=== PATIENT | female | born 1955 | race Caucasian/White ===

== ENCOUNTER 2022-10-06 01:15 | Emergency (ER) | payer BC, SELFPAY ==
[2022-10-06 01:21] VITALS: BP 145/81; PULSE 77; RESP 16; TEMP 36.2; O2SAT 97
--- NOTE | 2022-10-06 01:33 | ED_ITS ---
HPI - General Adult General Chief complaint: Insect Bite Stated complaint: left hand bee sting Time Seen by Provider: 10/06/22 01:33 History of Present Illness HPI narrative: pt stung by yellow jacket on Friday. Location, left hand, ring finger. Swelling and pain are not improving. Pain rated 4/10. Pt reports taking Tylenol 67-year-old woman presents to the emergency department with complaint hand pain following a yellow jacket sting day and half ago. She has been taking diphenhydramine and acetaminophen. Starting to have pain going up her left arm and some swelling increased into her hand wrist area and is worried that has cellulitis. She notes great deal of tension in her 4th finger indicating the PIP area. No fever. No drainage. Has been icing. No nausea, chest pain, shortness of breath. She is under a good deal of stress as her has had an extended stay at [facility]. Related Data Allergies Allergy/AdvReac Type Severity Reaction Status Date / Time No Known Drug Allergies Allergy Verified 10/06/22 01:24 Review of Systems Status of ROS: Reports: 6 or more systems reviewed and unremarkable except as noted in History and below PFSH REPLACED BY [facility] Social History Smoking Status: Never smoker Non-prescribed substance use: denies use Exam Narrative: Exam Narrative: Pleasant. Mildly anxious. Breathing easily. No wheeze or stridor audible. Examination of left hand in question shows diffuse mild swelling over the dorsum of the hand and more so over the PIP of the left 4th finger. Some blotchy areas of intradermal bleeding at the PIP. There is minimal calor generally. Well- perfused peripherally. I do not see a loss of architecture consistent with cellulitis. Is not particularly tender though to my palpation either over the dorsum of the hand or finger. Flexes and extends this finger without significant difficulty or demonstration of pain. I do not see actual site of envenomation or foreign body. Const: Vital Signs, click to edit/add: Vital Signs - 24 hr 10/06/22 01:21 Temperature 97.1 F L Pulse Rate [Right Pulse Oximeter] 77 Respiratory Rate 16 Blood Pressure [Ri ght Upper Arm] 145/81 H Pulse Oximetry 97 Oxygen Delivery Me thod Room Air Documenting provider has reviewed patient's vital signs: yes Course Vital Signs Vital signs: Initial Vital Signs Temperature 97.1 F L 10/06/22 01:21 Temperature Source Temporal Artery Scan 10/06/22 01:21 Pulse Rate 77 10/06/22 01:21 Pulse Rhythm Regular 10/06/22 01:21 Respiratory Rate 16 10/06/22 01:21 Blood Pressure 145/81 H 10/06/22 01:21 Blood Pressure Mean 102 10/06/22 01:21 Blood Pressure Position Sitting 10/06/22 01:21 Pulse Oximetry 97 10/06/22 01:21 Oxygen Delivery Method Room Air 10/06/22 01:21 Vital Signs Temperature 97.1 F L 10/06/22 01:21 Pulse Rate 77 10/06/22 01:21 Respiratory Rate 16 10/06/22 01:21 Blood Pressure 145/81 H 10/06/22 01:21 Pulse Oximetry 97 10/06/22 01:21 Oxygen Delivery Method Room Air 10/06/22 01:21 Temperature 97.1 F L 10/06/22 01:21 Pulse Rate 77 10/06/22 01:21 Respiratory Rate 16 10/06/22 01:21 Blood Pressure 145/81 H 10/06/22 01:21 Pulse Oximetry 97 10/06/22 01:21 Oxygen Delivery Method Room Air 10/06/22 01:21 Medical Decision Making MDM Narrative Medical decision making narrative: I think this is primarily a localized reaction still at this point. I do not see so much evidence of cellulitis. I have encouraged course of prednisone as opposed antibiotics. Apparently has been wakeful with prednisone in the past. See patient discharge plan Discharge Plan Discharge Clinical Impression: Inflammation, Envenomation, Hornet sting Patient Disposition: Home, Self-Care Condition: Stable Additional Instructions: I would continue to ice your hand 2-3 times daily over the next few days. Elevate for comfort; perhaps an arm sling would help this be more comfortable/possible. Can continue with acetaminophen as well as ibuprofen for discomfort. Instead of diphenhydramine, particularly during the day, you might try hydroxyzine for itching and irritation. Might be less sedating. Stay well-hydrated. I do not see signs of cellulitis at this point. We are watching for marked increase in pain, swelling, redness, heat and pain. Take the prednisone as 40 mg for your 1st dose and then I think splitting the dose twice a day with the 2nd dose of the day in the later afternoon (as opposed to evening) to maybe affect your sleep a little bit less. So take 40 mg of prednisone for your 1st dose, then 20 mg 2 times daily for the next 5 days. Can discontinue sooner if see marked improvement. Prednisone and hydroxyzine from [facility]. Stand Alone Forms: [email or web address] Info Instructions
== END 2022-10-06 02:24 | disposition home or self-care (01) ==
PROVIDERS: Emergency Provider Family Medicine
DX: T63.451A Toxic effect of venom of hornets, accidental (unintentional), initial encounter (principal)
CPT/HCPCS: 99283

== ENCOUNTER 2023-10-03 10:55 | Outpatient (CLI) | payer BC, SELFPAY | END 2023-10-03 10:56 | disposition home or self-care (01) | LOC: NFLDREF 10:56 | PROVIDERS: Visit Provider Obstetrics & Gynecology | DX: R33.9 Retention of urine, unspecified (principal) | CPT/HCPCS: 87086 ==

== ENCOUNTER 2023-11-04 10:30 | Outpatient (RCR) | payer BC, SELFPAY ==
--- NOTE | 2023-10-20 17:06 | PT.OPEX ---
PT [place] [facility] Eval PT [facility] Outpatient Eval Start: 10/17/23 17:27 Freq: Status: Active Protocol: Document 10/20/23 12:34 KAL (Rec: 10/20/23 12:58 KAL [id number]) E-signed By Aarti Stout PT Physical Therapy Outpatient Evaluation Insurance Information Insurance Name [employer] Medical Diagnosis rectocele Treating Diagnosis rectocele lack of coordination - muscles Subjective Subjective Sarah presents with diagnosis of rectocele. Pt noticed tissue at her vaginal opening approx 2 months ago after walking her dog. Pt denies having any issues prior to that day. Overall her bladder function is good. May have mild MICHAEL symptoms that occur usually only when her bladder is really full. Her bowel function is also good. Does defecate daily. Her consistency of stool is depending on her stress and diet. Also has noticed with some changes since her diagnosis with pre diabetes and certain types of foot. Does need to push in order to initiate stools. Pt is not currently sexually active due to issues with her spouse's health. Pt has had a chronic cough X 17 years. Has been placed on meds that have helped but continues to have multiple fits of coughing throughout the entire day. PMH includes: pre diabetic, depression, Skin CA. Goal for therapy include reducing prolapse symptoms/worsening of symptoms. Date of Last Physician Visit 10/03/23 Occupation Currently was laid off from [employer] Assessment Assessment/Impression 68 yo client presents with issue of rectocele. Pt just noticed bulge approx 2 months ago. Has no other signs/ symptoms of POP. Bowel and bladder function are good. Does need to push to evacuate stool which has consisted more of valsalva pushing and no use of a stool/squatty potty. Her stool consistency can vary greatly from Type 1- Type 7 on the [place] stool scale. Does have some urgency issues with stool but typically related to softer stools (type 6 and type 7). MICHAEL symptoms are only present with fully bladder with coughing, sneezing, lifting. Pt denies any issues with sexual function when she was sexually active. Pt does have history of 3 vaginal births of large babies (8# 13 oz to 10# 3 oz). No complications with , delivery or with the except of having perineal stitches after all 3 deliveries. Pt has talked with her MD with pessaries but pt is feeling like she does not want to go this route. Did not have time to complete assessment of her PFM today. Will try to complete at the next session. With findings today, pt is appropriate for further skilled PT services including use of therapeutic exercise, therapeutic activities, neuromuscular re-ed, manual therapy, and self cares for symptom reduction. Plan of Care Rehabilitation Potential Good Physical Therapy Goals Short term goals to be achieved in 4 weeks 1. Pt will demonstrate use of functional PFM/precontraction and proper breathing/exhale to eliminate MICHAEL during bending, lifting, sneezing. 2. Will demonstrate an increase in PFM endurance to 8 sec holds X 10 reps, or greater, for ability to reduce UI symptoms and for ability to return symptoms of POP. 3. Pt able to demonstrate correct posture and pushing techniques for defecation to reduce risk of POP worsening. 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 1. Independent with self-care program to allow for reduction in her POP and UI symptoms 2. Will report an >80% reduction in her POP symptoms as seen with no visible descent of tissue in the vagina for 3 consecutive weeks .. 3. Pt will be able to demonstrate proper mechanics with lifting/carrying, including ability to manage IAP, to reduce risk of worsening POP symptoms. Coordination/Communication With Referral Source Treatment Plan/Direct Interventions Joint Mobilization,Manual Therapy,Neuromuscular Re-ed, Self-Care/Home Management, Therapeutic Activities, Therapeutic Exercises Frequency/Duration 1 time a week for up to 12 visits. Patient Will Be Discharged From Therapy Completion of LTG(s),Skills Plateau,Independent w/HEP, Independently Progressing Evaluation Billing Untimed Code Treatment Minutes 45 Complexity Moderate Certification Information Initial Certification Date 10/20/23 Ending Certification Date 01/18/24 Provider Signature Required Yes Provider Signature Shows Agreement With POC & Medical Necessity Physician NPI Number Write NPI# Here Physician Comment/Change : Physician Signature & Date Requested Please Sign/Date Here
== END 2024-03-03 23:59 | disposition home or self-care (01) ==
PROVIDERS: PCP Student in an Organized Health Care Education/Training Program; Visit Provider Obstetrics & Gynecology
DX: N81.6 Rectocele (principal); R05.3 Chronic cough; R27.8 Other lack of coordination; Z51.89 Encounter for other specified aftercare
CPT/HCPCS: 97110; 97140; 97162; 97535